=== PATIENT | male | born 1930 | race Caucasian/White ===

== ENCOUNTER 2017-04-26 18:24 | Inpatient (IN) | payer OTHER ==
[2017-04-26 19:00] LABS: ADD MAN DIFF? NO
[2017-04-26 19:02] LABS: WHITE BLOOD COUNT 10.6 10^3/ul (4.8-10.8)
[2017-04-26 19:02] LABS: BASOPHILS % 0.2 % (0.0-2.0); EOSINOPHILS % 0.3 % (0.0-7.0); HEMATOCRIT 48.1 % (42.0-52.0); HEMOGLOBIN 15.1 g/dl (14.0-18.0); LYMPHOCYTES # 1.2 10^3/ul (0.8-2.9); LYMPHOCYTES % 11.2 % (15.0-51.0); MEAN CORPUSCULAR HEMOGLOBIN 25.3 pg (29.0-33.0); MEAN CORPUSCULAR HGB CONC 31.4 g/dl (32.0-37.0); MEAN CORPUSCULAR VOLUME 80.4 fl (82.0-101.0); MEAN PLATELET VOLUME 10.6 fl (7.4-10.4); MONOCYTE # 0.4 10^3/ul (0.3-0.9); NEUTROPHIL # 8.9 10^3/ul (1.6-7.5); PLATELET COUNT 267 10^3/UL (140-415); RED BLOOD COUNT 5.98 10^6/ul (4.70-6.10); RED CELL DISTRIBUTION WIDTH 17.8 % (11.5-14.5)
[2017-04-26] MEDS: ONDANSETRON 4 MG INJ IV (19:29)
[2017-04-26] MEDS: SOD CHLORIDE 0.9% 1,000 ML IV (19:29)
[2017-04-26] MEDS: FAMOTIDINE 20 MG INJ IV (19:29)
[2017-04-26 19:39] LABS: ALANINE AMINOTRANSFERASE 38 IU/L (13-69); ALBUMIN 3.8 g/dl (3.3-4.9); ALBUMIN/GLOBULIN RATIO 1.02; ALKALINE PHOSPHATASE 107 IU/L (42-121); ANION GAP 16 (8-16); ASPARTATE AMINO TRANSFERASE 20 IU/L (15-46); BILIRUBIN,INDIRECT 0.7 mg/dl (0-1.1); BILIRUBIN,TOTAL 0.7 mg/dl (0.2-1.3); BLOOD UREA NITROGEN 37 mg/dl (7-20); CALCIUM 9.4 mg/dl (8.4-10.2); CARBON DIOXIDE 31 mmol/L (21-31); CHLORIDE 102 mmol/L (97-110); CREATININE 0.93 mg/dl (0.61-1.24); GLUCOSE 116 mg/dl (70-220); POTASSIUM 4.6 mmol/L (3.5-5.1); SODIUM 144 mmol/L (135-144); TOTAL PROTEIN 7.5 g/dl (6.1-8.1)
[2017-04-26 19:42] LABS: PROTIME 13.3 Sec (11.9-14.9)
[2017-04-26 19:51] LABS: PARTIAL THROMBOPLASTIN TIME 30.4 Sec (25.0-35.0); TROPONIN-I < 0.012 ng/ml (0.00-0.12)
[2017-04-26] MEDS: LORAZEPAM 2 MG INJ IV (23:09)
[2017-04-26 23:40] LABS: URINE PH (Dip) POC >=9.0 (5.0-8.5)
[2017-04-26 23:40] LABS: URINE BLOOD (Dip) POC 1+ (NEGATIVE); URINE GLUCOSE (Dip) POC Negative (NEGATIVE); URINE KETONES (Dip) POC Negative (NEGATIVE); URINE LEUKOCYTE EST (Dip) POC 3+ (NEGATIVE); URINE NITRITE (Dip) POC Positive (NEGATIVE); URINE TOTAL PROTEIN POC 2+ (NEGATIVE)
[2017-04-27 00:23] LABS: ADD UMIC YES; UR AMORPHOUS CRYSTAL FEW /HPF (NONE SEEN); UR ASCORBIC ACID 40 mg/dL (NEGATIVE); UR BACTERIA FEW /HPF (NONE SEEN); UR BILIRUBIN (Dip) NEGATIVE (NEGATIVE); UR BLOOD (Dip) NEGATIVE (NEGATIVE); UR CLARITY TURBID (CLEAR); UR COLOR AMBER (YELLOW); UR GLUCOSE (Dip) NEGATIVE (NEGATIVE); UR KETONES (Dip) NEGATIVE (NEGATIVE); UR LEUKOCYTE ESTERASE (Dip) 2+ Leu/ul (NEGATIVE); UR MUCUS MANY /HPF (NONE SEEN); UR NITRITE (Dip) POSITIVE (NEGATIVE); UR RBC 7 /HPF (0-5); UR SPECIFIC GRAVITY (Dip) 1.012 (1.003-1.030); UR TOTAL PROTEIN (Dip) 3+ mg/dl (NEGATIVE); UR UROBILINOGEN (Dip) NEGATIVE (NEGATIVE); UR WBC 63 /HPF (0-5)
[2017-04-27] MEDS: CEFEPIME 1GM/50 ML (PMX) 50 ML IVPB (01:28)
[2017-04-27] MEDS: SOD CHLORIDE 0.9% 1,000 ML IV ×2 (01:29→08:00)
[2017-04-27] MEDS ORDERED: ONDANSETRON 4 MG INJ IV ×2 (05:30→09:30)
[2017-04-27] MEDS ORDERED: ACETAMINOPHEN 325 MG TAB PO (05:30)
[2017-04-27] MEDS ORDERED: NACL 0.9% 3 ML SYG IV (09:30)
[2017-04-27] MEDS ORDERED: ALBUTEROL/IPRATROPIUM (NEB) 3 ML AMP HHN (09:30)
[2017-04-27] MEDS: PANTOPRAZOLE 40 MG INJ IV ×2 (09:47→18:02)
[2017-04-27] MEDS: DEXTROSE 5%-0.45% NACL 1,000 ML IV ×2 (09:47→18:05)
[2017-04-27] MEDS: CIPROFLOXACIN 400MG/D5W 200 ML IVPB ×2 (11:20→22:22)
[2017-04-27] MEDS: INFLUENZA VIRUS VACCINE 0.5 ML SYG IM* (22:54)
[2017-04-27] MEDS: morphine 2 MG INJ IV (23:08)
[2017-04-28] MEDS: DEXTROSE 5%-0.45% NACL 1,000 ML IV ×2 (03:51→18:01)
[2017-04-28] MEDS: PANTOPRAZOLE 40 MG INJ IV ×2 (05:27→18:00)
[2017-04-28 06:06] LABS: ADD MAN DIFF? NO
[2017-04-28 06:15] LABS: WHITE BLOOD COUNT 7.2 10^3/ul (4.8-10.8)
[2017-04-28 06:15] LABS: BASOPHILS % 0.3 % (0.0-2.0); EOSINOPHILS # 0.2 10^3/ul (0.0-0.5); EOSINOPHILS % 3.3 % (0.0-7.0); HEMATOCRIT 40.1 % (42.0-52.0); HEMOGLOBIN 12.4 g/dl (14.0-18.0); LYMPHOCYTES % 28.2 % (15.0-51.0); MEAN CORPUSCULAR HEMOGLOBIN 25.2 pg (29.0-33.0); MEAN CORPUSCULAR HGB CONC 30.9 g/dl (32.0-37.0); MEAN CORPUSCULAR VOLUME 81.5 fl (82.0-101.0); MEAN PLATELET VOLUME 11.2 fl (7.4-10.4); MONOCYTE # 0.6 10^3/ul (0.3-0.9); MONOCYTES % 8.4 % (0.0-11.0); NEUTROPHIL # 4.3 10^3/ul (1.6-7.5); NEUTROPHILS % 59.4 % (39.0-77.0); PLATELET COUNT 225 10^3/UL (140-415); RED BLOOD COUNT 4.92 10^6/ul (4.70-6.10); RED CELL DISTRIBUTION WIDTH 17.3 % (11.5-14.5)
[2017-04-28 07:03] LABS: ALANINE AMINOTRANSFERASE 38 IU/L (13-69); ALBUMIN 2.9 g/dl (3.3-4.9); ALKALINE PHOSPHATASE 82 IU/L (42-121); ANION GAP 14 (8-16); ASPARTATE AMINO TRANSFERASE 16 IU/L (15-46); BLOOD UREA NITROGEN 25 mg/dl (7-20); CALCIUM 8.6 mg/dl (8.4-10.2); CARBON DIOXIDE 25 mmol/L (21-31); CHLORIDE 110 mmol/L (97-110); CREATININE 0.85 mg/dl (0.61-1.24); GLUCOSE 93 mg/dl (70-220); POTASSIUM 3.9 mmol/L (3.5-5.1); SODIUM 145 mmol/L (135-144); TOTAL PROTEIN 5.8 g/dl (6.1-8.1)
[2017-04-28] MEDS ORDERED: LACTULOSE 30ML CUP GTB (08:00)
[2017-04-28] MEDS: CIPROFLOXACIN 400MG/D5W 200 ML IVPB ×2 (09:46→21:23)
[2017-04-28] MEDS ORDERED: ACETAMINOPHEN 650MG/20.3ML CUP GTB (14:30)
[2017-04-28] MEDS: BISACODYL 10 MG SUPP PR (15:41)
[2017-04-28] MEDS: NYSTATIN SUSP 5 ML CUP PO ×2 (17:00→21:17)
[2017-04-28] MEDS: SENNA TAB GTB (21:17)
[2017-04-28] MEDS: ASCORBIC ACID 500 MG TAB GTB (21:17)
[2017-04-28] MEDS: FAMOTIDINE 20 MG TAB GTB (21:17)
[2017-04-28] MEDS: ATORVASTATIN 80 MG TAB GTB (21:17)
[2017-04-28] MEDS: METOPROLOL 25 MG TAB GTB (21:18)
[2017-04-29] MEDS: DEXTROSE 5%-0.45% NACL 1,000 ML IV ×2 (01:05→05:45)
[2017-04-29 04:40] LABS: OCCULT BLOOD STOOL NEGATIVE (NEGATIVE)
[2017-04-29] MEDS: PANTOPRAZOLE 40 MG INJ IV (05:43)
[2017-04-29 05:57] LABS: ADD MAN DIFF? NO
[2017-04-29 06:32] LABS: WHITE BLOOD COUNT 8.7 10^3/ul (4.8-10.8)
[2017-04-29 06:32] LABS: BASOPHILS % 0.5 % (0.0-2.0); EOSINOPHILS # 0.2 10^3/ul (0.0-0.5); EOSINOPHILS % 2.7 % (0.0-7.0); HEMOGLOBIN 13.4 g/dl (14.0-18.0); LYMPHOCYTES # 1.5 10^3/ul (0.8-2.9); LYMPHOCYTES % 17.1 % (15.0-51.0); MEAN CORPUSCULAR HEMOGLOBIN 25.4 pg (29.0-33.0); MEAN CORPUSCULAR HGB CONC 30.5 g/dl (32.0-37.0); MEAN CORPUSCULAR VOLUME 83.5 fl (82.0-101.0); MEAN PLATELET VOLUME 10.4 fl (7.4-10.4); MONOCYTE # 0.7 10^3/ul (0.3-0.9); MONOCYTES % 8.2 % (0.0-11.0); NEUTROPHIL # 6.2 10^3/ul (1.6-7.5); NEUTROPHILS % 71.2 % (39.0-77.0); PLATELET COUNT 216 10^3/UL (140-415); RED BLOOD COUNT 5.27 10^6/ul (4.70-6.10); RED CELL DISTRIBUTION WIDTH 16.9 % (11.5-14.5)
[2017-04-29] MEDS: CIPROFLOXACIN 400MG/D5W 200 ML IVPB (09:21)
[2017-04-29] MEDS: NYSTATIN SUSP 5 ML CUP PO ×3 (09:23→21:59)
[2017-04-29] MEDS: SENNA TAB GTB ×2 (09:23→21:00)
[2017-04-29] MEDS: FOLIC ACID 1 MG TAB GTB (09:23)
[2017-04-29] MEDS: ZINC SULFATE 220 MG CAP GTB (09:23)
[2017-04-29] MEDS: FAMOTIDINE 20 MG TAB GTB ×2 (09:23→22:01)
[2017-04-29] MEDS: FINASTERIDE 5 MG TAB GTB (09:23)
[2017-04-29] MEDS: ASCORBIC ACID 500 MG TAB GTB ×2 (09:23→21:59)
[2017-04-29] MEDS: METOPROLOL 25 MG TAB GTB ×2 (09:24→22:00)
[2017-04-29] MEDS: BISACODYL 10 MG SUPP PR (14:30)
[2017-04-29] MEDS: ATORVASTATIN 80 MG TAB GTB (22:00)
[2017-04-30] MEDS: NYSTATIN SUSP 5 ML CUP PO ×3 (09:00→21:30)
[2017-04-30] MEDS: FINASTERIDE 5 MG TAB GTB (09:25)
[2017-04-30] MEDS: ZINC SULFATE 220 MG CAP GTB (09:25)
[2017-04-30] MEDS: FOLIC ACID 1 MG TAB GTB (09:25)
[2017-04-30] MEDS: FAMOTIDINE 20 MG TAB GTB ×2 (09:25→21:31)
[2017-04-30] MEDS: METOPROLOL 25 MG TAB GTB ×2 (09:26→21:31)
[2017-04-30] MEDS: ASCORBIC ACID 500 MG TAB GTB ×2 (09:26→21:30)
[2017-04-30] MEDS: SENNA TAB GTB ×2 (09:26→21:31)
[2017-04-30 11:21] LABS: ANION GAP 14 (8-16); BLOOD UREA NITROGEN 18 mg/dl (7-20); CALCIUM 8.6 mg/dl (8.4-10.2); CARBON DIOXIDE 24 mmol/L (21-31); CHLORIDE 110 mmol/L (97-110); CREATININE 0.73 mg/dl (0.61-1.24); GLUCOSE 104 mg/dl (70-220); MAGNESIUM 1.9 mg/dl (1.7-2.5); PHOSPHORUS 3.2 mg/dl (2.5-4.9); SODIUM 144 mmol/L (135-144)
[2017-04-30] MEDS: BISACODYL 10 MG SUPP PR (14:30)
[2017-04-30] MEDS: ATORVASTATIN 80 MG TAB GTB (21:30)
[2017-04-30] MEDS: CEPHALEXIN 500 MG CAP PO (21:31)
[2017-05-01] MEDS: CEPHALEXIN 500 MG CAP PO ×2 (09:23→21:58)
[2017-05-01] MEDS: FOLIC ACID 1 MG TAB GTB (09:23)
[2017-05-01] MEDS: ZINC SULFATE 220 MG CAP GTB (09:23)
[2017-05-01] MEDS: NYSTATIN SUSP 5 ML CUP PO ×3 (09:23→21:58)
[2017-05-01] MEDS: ASCORBIC ACID 500 MG TAB GTB ×2 (09:23→22:00)
[2017-05-01] MEDS: SENNA TAB GTB ×2 (09:23→21:00)
[2017-05-01] MEDS: METOPROLOL 25 MG TAB GTB ×2 (09:26→21:59)
[2017-05-01] MEDS: FINASTERIDE 5 MG TAB GTB (09:26)
[2017-05-01] MEDS: FAMOTIDINE 20 MG TAB GTB ×2 (09:26→21:59)
[2017-05-01] MEDS: BISACODYL 10 MG SUPP PR (14:24)
[2017-05-01] MEDS: ATORVASTATIN 80 MG TAB GTB (22:00)
[2017-05-02] MEDS: SENNA TAB GTB (09:00)
[2017-05-02] MEDS: FOLIC ACID 1 MG TAB GTB (10:28)
[2017-05-02] MEDS: FAMOTIDINE 20 MG TAB GTB (10:29)
[2017-05-02] MEDS: FINASTERIDE 5 MG TAB GTB (10:29)
[2017-05-02] MEDS: METOPROLOL 25 MG TAB GTB (10:29)
[2017-05-02] MEDS: ASCORBIC ACID 500 MG TAB GTB (10:29)
[2017-05-02] MEDS: ZINC SULFATE 220 MG CAP GTB (10:30)
[2017-05-02] MEDS: NYSTATIN SUSP 5 ML CUP PO (10:30)
[2017-05-02] MEDS: CEPHALEXIN 500 MG CAP PO (10:30)
== END 2017-05-02 11:00 | disposition home health service (06) | DRG 378 ==
LOC: E/R 18:24 → PP2 04-27 05:30
DX: K92.0 Hematemesis (principal); N39.0 Urinary tract infection, site not specified; I69.354 Hemiplegia and hemiparesis following cerebral infarction affecting left non-dominant side; F03.90 Unspecified dementia, unspecified severity, without behavioral disturbance, psychotic disturbance, mood disturbance, and anxiety; I10 Essential (primary) hypertension; B96.4 Proteus (mirabilis) (morganii) as the cause of diseases classified elsewhere; R13.10 Dysphagia, unspecified
CPT/HCPCS: 36415; 71045; 74176; 80048; 80053; 81001; 81003; 82270; 83735; 84100; 84484; 85025; 85610; 85730; 86850; 86900; 86901; 87081; 87086; 92610; 93005; 96374; 96375; 99285-25